=== PATIENT | female | born 2000 | race Caucasian/White ===

== ENCOUNTER 2025-05-01 13:05 | Emergency (ER) | payer SELFPAY ==
[2025-05-01 13:05] VITALS: BP 126/78; PULSE 77; RESP 16; TEMP 36.7; O2SAT 100; BMI 19.1
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
[2025-05-01] MEDS: Ondansetron 4 MG/2 ML Vial IV (14:46)
[2025-05-01] MEDS: 0.9% Normal Saline (500mL Bag) 500 ML 1000 ML IV (14:46)
[2025-05-01 14:48] LABS: Absolute Lymphocyte Count 1.65 X10^3/uL (0.83-4.51); Absolute Neutrophil Count 4.8 X10^3/uL (2.0-7.7); Basophil# 0.03 X10^3/uL; Basophil% 0.4 % (0-1); Eosinophil# 0.05 X10^3/uL; Eosinophils% 0.7 % (0-5); Hematocrit 32.4 % (37-47); Hemoglobin 11.6 g/dL (12.0-15.0); Lymphocyte # 1.65 X10^3/ul (0.83-4.51); Lymphocyte % 23.5 % (19-41); Mean Corp Hgb Conc 35.8 g/dL (32-36); Mean Corpuscular Hgb 30.8 pg (27.0-32.0); Mean Corpuscular Volume 85.9 fL (81-99); Mean Platelet Vol. 11.4 fl (6.2-12.0); Monocyte% 7.1 % (0-10); NRBC Flagged by Analyzer 0 % (0-5); Neutrophil # 4.78 X10^3/uL (2.7-7.7); Platelet Count 174 K/mm3 (150-450); RBC Distribution Width CV 12.5 % (11.6-14.6); RBC Distribution Width SD 39.1 fl (35.1-43.9); Red Blood Count 3.77 M/mm3 (4.2-5.4)
[2025-05-01 15:05] VITALS: BP 120/74; O2SAT 97
[2025-05-01 15:22] LABS: Bacteria 0 SEEN /hpf (None Seen); Mucous, Urine 0 SEEN /hpf (<or=2+)
[2025-05-01 15:28] LABS: Color, Urine Straw (Yellow); Glucose, Dipstick Normal (Normal); Ketone-Dipstick Negative (Negative); Leukocyte Esterase-Dipstick Negative /ul (Negative); Nitrite-Dipstick Negative (Negative); Occult Blood-Urine Negative /ul (Negative); Protein-Dipstick Negative (Negative); Specific Gravity, Urine 1.005 (1.002-1.030); Urine Bilirubin Dipstick Negative (Negative); Urine Clarity Clear (Clear); Urine Urobilinogen Normal (Normal)
[2025-05-01 15:31] LABS: ALB/GLOB Ratio 1.8 RATIO (0.9-2.4); AST(SGOT) 19 U/L (<=31); Alanine Aminotransfer ALT/SGPT 19 U/L (<=34); Albumin, Serum 4.3 g/dL (3.5-5.0); Alkaline Phosphatase 59 U/L (35-104); Anion Gap 11 (5-15); BUN 7 mg/dL (4-19); Calcium,Total 9.2 mg/dL (7.6-11.0); Carbon Dioxide 19.3 mmol/L (21.0-32.0); Chloride 107 mmol/L (98-108); Creatinine, Serum 0.54 mg/dL (0.70-1.20); EST Glomerular Filtration Rate 132 (>60); Globulin 2.4 g/dL (2.2-4.2); Glucose 88 mg/dL (70-99); Lipase 30 U/L (13-75); Potassium 3.8 mmol/L (3.3-5.1); Protein, Total 6.7 g/dL (5.9-8.4); Sodium Level 138 mmol/L (133-145); Total Bilirubin 0.45 mg/dL (0.00-1.30)
[2025-05-01 15:44] LABS: hCG Titer Quant., Serum 7196 mIU/mL (<9 non-preg)
--- NOTE | 2025-05-01 15:53 | US_ITS ---
PROCEDURE: TRANSVAGINAL W/PREG US 05/01/2025 REASON FOR EXAM: ABDOMINAL PAIN 5 WEEKS OB TECHNIQUE: Transvaginal imaging was obtained with color Doppler imaging. COMPARISON: None. FINDINGS: Yolk Sac: Present and unremarkable. Uterine Abnormalities: Maternal uterus is unremarkable, measuring 8.9 x 4.9 x 4.8 cm. The cervical os appears closed. Ovaries / Adnexa: Both maternal ovaries are visualized. Probable right corpus luteum. Moderate volume free fluid. DIMENSIONS: Parameter Measurement / EGA [place] Rump Length: Nonvisualized due to early gestational age Gestational Sac: 0.8 cm/5 weeks 4 days Yolk Sac: 0.2 cm ESTIMATED GESTATIONAL AGE: By Ultrasound: 5 weeks 4 days By LMP: 5 weeks 3 days ESTIMATED DATE OF DELIVERY: By Ultrasound: 12/29/2025 By LMP: 12/29/2025 US/Transvaginal w/Preg US IMPRESSION: UNREMARKABLE FIRST TRIMESTER ULTRASOUND. Reading Location: [id number]
--- NOTE | 2025-05-01 15:56 | ED.RN ---
Pt refusing IV fluids stating that they make her arm burn.
[2025-05-01 16:07] LABS: Red Blood Cells-Urine 0-5 SEEN /hpf (0-5); Squamous Epithelial Cells - UA 0-5 SEEN /hpf (5-10); White Blood Cells 0-5 SEEN /hpf (0-5)
[2025-05-01 17:00] VITALS: BP 105/72; O2SAT 97
[2025-05-01 17:55] VITALS: BP 118/75; PULSE 67; RESP 14; TEMP 36.6; O2SAT 100
== END 2025-05-01 17:56 | disposition home or self-care (01) ==
PROVIDERS: Emergency Provider Emergency Medicine; PCP Family Medicine; Visit Provider Emergency Medicine
DX: O99.891 Other specified diseases and conditions complicating pregnancy (principal); R10.9 Unspecified abdominal pain; F17.290 Nicotine dependence, other tobacco product, uncomplicated; O99.331 Smoking (tobacco) complicating pregnancy, first trimester; Z3A.01 Less than 8 weeks gestation of pregnancy
CPT/HCPCS: 76817; 80053; 81001; 83690; 84702; 85025; 86900; 86901; 96361; 96374; 99282; A4216; J2405